=== PATIENT | female | born 1940 | race Hispanic/Latino ===

== ENCOUNTER 2017-11-08 23:10 | Emergency (ER) | payer OTHER ==
[~2017-11-08 23:10] MED LIST: ACET1TAB12 PO; AMLO2.5T PO; ASPI-1012 PO; ATOR40TA71 PO; GABA-529 PO; METF500T6 PO; METO-409 PO; OMEP40CA37 PO
[2017-11-08] MEDS ORDERED: HYDRALAZINE HCL 20 MG/ML VIAL ONE (23:29)
[2017-11-08] MEDS ORDERED: HYDROXYZINE HCL 25 MG TABLET ONE (23:32)
[2017-11-09] MEDS ORDERED: ASPIRIN 325 MG TABLET ONE (00:02)
[2017-11-09 00:12] LABS: BASOPHILS % (AUTO) 0.8 % (0.0-5.0); EOSINOPHILS % (AUTO) 5.5 % (0.0-8.0); HEMATOCRIT 34.6 % (36-48); LYMPHOCYTES % (AUTO) 31.7 % (21.0-51.0); MEAN CORPUSCULAR HEMOGLOBIN 27.9 pg (27.0-33.0); MEAN CORPUSCULAR HGB CONC 33.7 g/dL (32.0-36.0); MEAN CORPUSCULAR VOLUME 82.9 fL (79-99); MONOCYTES % (AUTO) 7.5 % (3.0-13.0); NEUTROPHILS % (AUTO) 54.5 % (40.0-77.0); NUCLEATED RED BLOOD CELLS 0.1 % (0.0-0.19); PLATELET COUNT (AUTO) 187 K/uL (130-400); RED BLOOD CELL COUNT(AUTO) 4.17 MIL/uL (4.00-5.50); RED CELL DISTRIBUTION WIDTH 17.6 % (11.0-15.5); WHITE BLOOD COUNT (AUTO) 8.6 K/uL (4.8-10.8)
[2017-11-09 00:16] LABS: POTASSIUM 3.5 mmol/L (3.5-5.1)
[2017-11-09 00:18] LABS: INR 1.03 (0.85-1.15); PARTIAL THROMBOPLASTIN TIME 25.4 SEC (26.3-35.5); PROTHROMBIN TIME 10.8 SEC (9.6-11.6)
[2017-11-09 00:26] LABS: B-TYPE NATRIURETIC PEPTIDE 567 pg/mL (0-100)
[2017-11-09 00:31] LABS: ALBUMIN 3.3 g/dL (3.5-5.0); BILIRUBIN,TOTAL 1.1 mg/dL (0.2-1.0); CREATINE KINASE MB 1.2 ng/mL (0.5-3.6)
== END 2017-11-09 00:58 | disposition home or self-care (01) ==
LOC: EDH 23:10
DX: I10 Essential (primary) hypertension (principal); R51 Headache; E11.9 Type 2 diabetes mellitus without complications; E78.5 Hyperlipidemia, unspecified; R79.1 Abnormal coagulation profile; Z88.8 Allergy status to other drugs, medicaments and biological substances; Z90.49 Acquired absence of other specified parts of digestive tract
CPT/HCPCS: 36415; 71045; 80053; 82550; 82553; 83874; 83880; 84484; 85025; 85610; 85730; 93005; 96374; 99285; J0360

== ENCOUNTER → 2018-07-31 | Outpatient (CLI) | payer OTHER ==
[~2018-07-31] MED LIST changes: -AMLO2.5T PO; +AMLO2.5T3 PO; +METF-444 PO; -METF500T6 PO
== END | disposition home or self-care (01) ==
LOC: OIH 10:19
PROVIDERS: ATTEND Family Medicine
DX: M47.896 Other spondylosis, lumbar region (principal); M41.86 Other forms of scoliosis, lumbar region; M48.061 Spinal stenosis, lumbar region without neurogenic claudication; M43.8X8 Other specified deforming dorsopathies, sacral and sacrococcygeal region; M85.88 Other specified disorders of bone density and structure, other site; I70.0 Atherosclerosis of aorta; M25.78 Osteophyte, vertebrae
CPT/HCPCS: 72100; 72220

== ENCOUNTER 2018-10-11 04:34 | Observation (INO) | payer OTHER ==
[~2018-10-11] VITALS: Ht 165.1 cm; Wt 58.8 kg
[~2018-10-11 04:34] MED LIST changes: -AMLO2.5T3 PO; +AMLO2.5T4 PO
[2018-10-11 05:01] LABS: BASOPHILS % (AUTO) 0.7 % (0.0-5.0); HEMATOCRIT 40.7 % (36-48); LYMPHOCYTES % (AUTO) 41.9 % (21.0-51.0); MEAN CORPUSCULAR HEMOGLOBIN 27.3 pg (27.0-33.0); MEAN CORPUSCULAR HGB CONC 33.1 g/dL (32.0-36.0); MEAN CORPUSCULAR VOLUME 82.5 fL (79-99); MONOCYTES % (AUTO) 6.2 % (3.0-13.0); NEUTROPHILS % (AUTO) 47.2 % (40.0-77.0); PLATELET COUNT (AUTO) 172 K/uL (130-400); RED BLOOD CELL COUNT(AUTO) 4.93 MIL/uL (4.00-5.50); RED CELL DISTRIBUTION WIDTH 19.7 % (11.0-15.5)
[2018-10-11 05:06] LABS: APPEARANCE,URINE Clear (CLEAR); BILIRUBIN,URINE Negative (NEGATIVE); COLOR,URINE Yellow (YELLOW); GLUCOSE, URINE (UA) Negative (NEGATIVE); KETONES,URINE Negative (NEGATIVE); LEUKOCYTE ESTERASE ,URINE Small (NEGATIVE); NITRATE,URINE Negative (NEGATIVE); OCCULT BLOOD,URINE Negative (NEGATIVE); PH,URINE 5.5 (5.0-8.0); PROTEIN,URINE Negative (NEGATIVE)
[2018-10-11 05:10] LABS: CREATININE 1.1 mg/dL (0.5-1.5); POTASSIUM 3.7 mmol/L (3.5-5.1)
[2018-10-11 05:13] LABS: BACTERIA,URINE Rare /HPF (None Seen); RBC,URINE None Seen /HPF (0-1); SQUAMOUS EPITHELIAL CELL,UR Moderate /HPF (0-2); WBC,URINE None Seen /HPF (0-1)
[2018-10-11 05:17] LABS: PARTIAL THROMBOPLASTIN TIME 23.6 SEC (26.3-35.5); PROTHROMBIN TIME 10.5 SEC (9.6-11.6)
[2018-10-11 05:28] LABS: ALBUMIN 3.8 g/dL (3.5-5.0); BILIRUBIN,TOTAL 1.1 mg/dL (0.2-1.0); TOTAL PROTEIN, SERUM 7.3 g/dL (6.0-8.3)
[2018-10-11] MEDS ORDERED: SODIUM CHLORIDE 0.9% 500ML 500 ML IV ONE (05:53)
[2018-10-11] MEDS ORDERED: SODIUM CHLORIDE 0.9% 10 ML VIAL IVP PRN (07:00)
[2018-10-11] MEDS ORDERED: PANTOPRAZOLE SODIUM 40 MG TABLET.DR PO SCH (07:30)
[2018-10-11] MEDS: ASPIRIN 325MG EC TAB 325 MG TABLET.DR PO SCH (09:00)
[2018-10-11] MEDS ORDERED: DEXTROSE 50%-WATER 50 ML DISP.SYRIN IV PRN (17:00)
[2018-10-11] MEDS ORDERED: GLUCAGON 1MG KIT 1 MG ML IM PRN (17:00)
[2018-10-11 17:15] VITALS: BP 141/62
[2018-10-11] MEDS ORDERED: PHARMACY COMMUNICATION MISC SCH (19:00)
[2018-10-11] MEDS ORDERED: LOSA100T58 PO (19:19)
[2018-10-11 19:35] VITALS: BP_SYST 102; BP_SYST 136; BP_DIAS 57; BP_DIAS 60
[2018-10-11] MEDS: INSULIN HUMULIN R 100 UNIT/ML 3ML SQ SCH (20:41)
[2018-10-11 23:32] VITALS: BP 142/71
[2018-10-12 03:57] VITALS: BP 117/60
[2018-10-12] MEDS: INSULIN HUMULIN R 100 UNIT/ML 3ML SQ SCH ×2 (06:19→11:30)
[2018-10-12 07:40] VITALS: BP 129/58
[2018-10-12] MEDS: ASPIRIN 325MG EC TAB 325 MG TABLET.DR PO SCH ×2 (09:09→09:11)
[2018-10-12 11:27] VITALS: BP 119/59
--- NOTE | 2018-10-12 18:05 | NUR ---
DC PLAN VISITED WITH PATIENT. PATIENT LIVES WITH SPOUSE AND SON. INDEPENDENT ABLE TO PERFORM ADL'S. PATIENT DC HOME. SAW PATIENT AND ADJUSTED MEDICATIONS. Addendum: 10/12/18 at 1807 by JOSE CAMPBELL RN CM Amended: Links added.
== END 2018-10-12 13:50 | disposition home or self-care (01) ==
LOC: EDH 04:34 → EDHIP 06:00 → 2DH 16:36
PROVIDERS: ADMIT Family Medicine; ATTEND Family Medicine
DX: R55 Syncope and collapse (principal); W18.39XA Other fall on same level, initial encounter; Y93.89 Activity, other specified; Y92.89 Other specified places as the place of occurrence of the external cause; Y99.8 Other external cause status; E11.9 Type 2 diabetes mellitus without complications; E78.5 Hyperlipidemia, unspecified; I10 Essential (primary) hypertension; Z90.49 Acquired absence of other specified parts of digestive tract
CPT/HCPCS: 36415; 71045; 80053; 81001; 82550 ×2; 82948 ×3; 83874; 84484 ×2; 85025; 85610; 85730; 93005; 93306; 93880; 97116; 97161; 99284; G0378 ×32; G8978; G8979; G8980; G8981; G8982; G8983; J7040

== ENCOUNTER → 2019-01-16 | Outpatient (CLI) | payer OTHER ==
[~2019-01-16] MED LIST changes: -ACET1TAB12 PO; -AMLO2.5T4 PO
== END | disposition home or self-care (01) ==
LOC: OIH 10:00
PROVIDERS: ATTEND Family Medicine
DX: M47.27 Other spondylosis with radiculopathy, lumbosacral region (principal); M41.87 Other forms of scoliosis, lumbosacral region
CPT/HCPCS: 72100

== ENCOUNTER 2019-07-18 05:40 | Day surgery (SDC) | payer OTHER, MEDICARE ==
[2019-07-16 08:44] LABS: BASOPHILS % (AUTO) 0.3 % (0.0-5.0); EOSINOPHILS % (AUTO) 1.5 % (0.0-8.0); HEMATOCRIT 34.8 % (36-48); LYMPHOCYTES % (AUTO) 26.6 % (21.0-51.0); MEAN CORPUSCULAR HEMOGLOBIN 28.5 pg (27.0-33.0); MEAN CORPUSCULAR HGB CONC 33.2 g/dL (32.0-36.0); MEAN CORPUSCULAR VOLUME 85.8 fL (79-99); MONOCYTES % (AUTO) 9.2 % (3.0-13.0); NEUTROPHILS % (AUTO) 62.4 % (40.0-77.0); PLATELET COUNT (AUTO) 175 K/uL (130-400); RED BLOOD CELL COUNT(AUTO) 4.06 MIL/uL (4.00-5.50); RED CELL DISTRIBUTION WIDTH 17.3 % (11.0-15.5); WHITE BLOOD COUNT (AUTO) 7.6 K/uL (4.8-10.8)
[2019-07-16 08:49] VITALS: BP 185/63
[2019-07-16 08:55] LABS: POTASSIUM 3.6 mmol/L (3.5-5.1)
[2019-07-16 09:13] LABS: INR 1.07 (0.85-1.15); PARTIAL THROMBOPLASTIN TIME 27.6 SEC (26.3-35.5); PROTHROMBIN TIME 11.2 SEC (9.6-11.6)
[~2019-07-18] VITALS: Ht 160 cm; Wt 55.8 kg
[2019-07-18] VITALS (8 sets, daily range): BP systolic 135–161; BP diastolic 60–73
[~2019-07-18 05:40] MED LIST changes: +ALEN70TA10 PO; +APIX5TAB PO; -ASPI-1012 PO; +CALC-1103 PO; +DEXA1TAB PO; -GABA-529 PO; +GABA-531 PO; +LOSA50TA64 PO; -METO-409 PO; +METO100T14 PO; +OMEP40CA13 PO; -OMEP40CA37 PO; +folic; +omega
[2019-07-18] MEDS ORDERED: SODIUM CHLORIDE 0.9% 1000ML 1,000 ML IV ONE (06:13)
--- NOTE | 2019-07-18 06:14 | NUR ---
PATIENT ARRIVED PATIENT ARRIVED TO DAY PATIENT ACCOMPANIED BY SPOUSE AND DAUGHTER (LYUDMILA). PATIENT AAOX3, RESPIRATIONS UNLABORED, VITAL SIGNS STABLE, DENIES ANY PAIN AT THIS TIME. PROCEDURE VERIFIED AND CONFIRMED WITH PATIENT. ALL QUESTIONS/CONCERNS ADDRESSED. PATIENT AND FAMILY EXPLAINED HOSPITAL ROUTINE AND BOTH VERBALIZED UNDERSTANDING.
[2019-07-18] MEDS ORDERED: AEC81 PO (07:25)
--- NOTE | 2019-07-18 07:30 | NUR ---
PATIENT TRANSFERRED PATIENT TAKEN TO ENGINEERING GROUP LEADER VIA BED BY NATHANAEL HARDWICK. PATIENT'S FAMILY INSTRUCTED TO WAIT IN THE ROOM SO THAT DR MONTOYA MAY SPEAK WITH THEM AFTER PROCEDURE IS COMPLETE, FAMILY VERBALIZED UNDERSTANDING.
[2019-07-18] MEDS ORDERED: LIDOCAINE HCL 2% 20ML ONE (07:33)
[2019-07-18] MEDS ORDERED: TYLENOL ARTHRITIS PO (07:33)
[2019-07-18] MEDS ORDERED: HEPARIN SODIUM 1000UNIT/ML 10ML VIAL ONE (07:53)
[2019-07-18] MEDS ORDERED: MIDAZOLAM HCL 1 MG/ML 2ML VIAL ONE (08:17)
[2019-07-18] MEDS ORDERED: MEPERIDINE-PF 25 MG/ML SYG ONE (08:17)
[2019-07-18] MEDS ORDERED: IOHEXOL-350 50ML VIAL IV ONE (08:40)
[2019-07-18] MEDS ORDERED: ACETAMINOPHEN 325 MG TAB PO PRN (10:15)
--- NOTE | 2019-07-18 10:15 | NUR ---
POST-PROCEDURE RECEIVED FROM SR ACCOUNT EXECUTIVE VIA BED BY RONEN BUSTILLO RN. S/P ATRIAL FLUTTER ABLATION. AWAKE IN NO ACUTE DISTRESS. DENIES PAIN. CONNECTED TO CONTINUOUS CARDIOPULMONARY MONITORING. SIDE RAILS UP X2, BED IN LOWEST POSITION, AND CALL LIGHT W/IN REACH.
--- NOTE | 2019-07-18 10:45 | NUR ---
ACTIVITY HOB ELEVATED TO 25 DEGREES. CATH SITE W/O SIGNS OF BLEEDING; SITE SOFT, NON-TENDER, DRESSING CLEAN, DRY, AND INTACT.
--- NOTE | 2019-07-18 12:15 | NUR ---
DIET ATE 75% OF LUNCH
--- NOTE | 2019-07-18 14:15 | NUR ---
ACTIVITY UP TO CHAIR WITH STANDBY ASSIST OF 1. GAIT STEADY. TOLERATED W/O C/O DIZZINESS OR PAIN.
--- NOTE | 2019-07-18 14:33 | NUR ---
DISCHARGE DAY PT DISCHARGE INSTRUCTION SHEET, MED REC, AND PT EDUCATION REVIEWED WITH PT AND DAUGHTER. BOTH VERBALIZED UNDERSTANDING. OPPORTUNITY GIVEN TO ASK QUESTIONS. QUESTION ADDRESSED.
== END 2019-07-18 14:38 | disposition home or self-care (01) ==
LOC: DAH 05:40
PROVIDERS: ATTEND Internal Medicine Cardiovascular Disease
DX: I48.3 Typical atrial flutter (principal); E78.5 Hyperlipidemia, unspecified; E11.40 Type 2 diabetes mellitus with diabetic neuropathy, unspecified; I12.9 Hypertensive chronic kidney disease with stage 1 through stage 4 chronic kidney disease, or unspecified chronic kidney disease; E11.22 Type 2 diabetes mellitus with diabetic chronic kidney disease; N18.3 Chronic kidney disease, stage 3 (moderate); Z88.8 Allergy status to other drugs, medicaments and biological substances; Z79.899 Other long term (current) drug therapy; Z79.01 Long term (current) use of anticoagulants; Z79.82 Long term (current) use of aspirin; Z90.49 Acquired absence of other specified parts of digestive tract; Z98.890 Other specified postprocedural states; Z83.3 Family history of diabetes mellitus; Z82.49 Family history of ischemic heart disease and other diseases of the circulatory system; Z79.84 Long term (current) use of oral hypoglycemic drugs
CPT/HCPCS: 36415; 80048; 82948; 85025; 85610; 85730; 93613; 93621; 93653; A4215; A4216; A4221; A4222; A4223 ×3; A4606; A4649 ×2; C1730; C1732; C1894 ×2; J1644 ×2; J2175; J2250; J3490; J7030; 99156; 99157; Q9967

== ENCOUNTER 2021-03-25 22:49 | Emergency (ER) | payer OTHER, MEDICARE ==
[~2021-03-25] VITALS: Ht 160 cm; Wt 45.4 kg
[~2021-03-25 22:49] MED LIST changes: +AEC81 PO; -ALEN70TA10 PO; +ALEN70TA80 PO; -OMEP40CA13 PO; +OMEP40CA21 PO; +TYLENOL ARTHRITIS PO
[2021-03-25] MEDS ORDERED: SOLU-MEDROL 125MG VIAL IVP STA (23:02)
[2021-03-25] MEDS ORDERED: DiphenhydrAMINE HCL 50 MG/ML VIAL IV STA (23:02)
[2021-03-25] MEDS ORDERED: FAMOTIDINE 20MG VIAL IV STA (23:02)
[2021-03-25] MEDS ORDERED: DiphenhydrAMINE HCL 50 MG/ML VIAL ONE (23:07)
[2021-03-25 23:51] VITALS: BP 129/65
[2021-03-25] MEDS ORDERED: FAMO-136 PO (23:57)
[2021-03-25] MEDS ORDERED: DIPH25 PO (23:57)
[2021-03-25] MEDS ORDERED: PRED10TA3 PO (23:57)
== END 2021-03-26 00:06 | disposition home or self-care (01) ==
LOC: EDH 23:04
DX: T78.1XXA Other adverse food reactions, not elsewhere classified, initial encounter (principal); R21 Rash and other nonspecific skin eruption; I10 Essential (primary) hypertension; E11.9 Type 2 diabetes mellitus without complications; E78.5 Hyperlipidemia, unspecified; Z88.8 Allergy status to other drugs, medicaments and biological substances; Z79.82 Long term (current) use of aspirin; Z79.01 Long term (current) use of anticoagulants; Z79.84 Long term (current) use of oral hypoglycemic drugs; Z79.899 Other long term (current) drug therapy; X58.XXXA Exposure to other specified factors, initial encounter
CPT/HCPCS: 96374; 96375; 99284; J1200; J2930; J3490

== ENCOUNTER → 2023-11-13 | Outpatient (CLI) | payer OTHER ==
[~2023-11-13] MED LIST changes: +AMOX-426 PO; -APIX5TAB PO; +ASPI-1005 PO; -CALC-1103 PO; +CALC-1252 PO; +CHOL200074 PO; -DEXA1TAB PO; +FOLI1 PO; +FURO20TA4 PO; -GABA-531 PO; +ISOS30TA92 PO; +LOSA100T59 PO; -LOSA50TA64 PO; +OSEL75 PO; +REGADENOSON 0.4 MG/5 ML PF SYG IVP ONE; -TYLENOL ARTHRITIS PO; -folic; -omega
== END | disposition home or self-care (01) ==
LOC: SHCH 08:12
PROVIDERS: ATTEND Internal Medicine Cardiovascular Disease
DX: I25.10 Atherosclerotic heart disease of native coronary artery without angina pectoris (principal)
CPT/HCPCS: 78452; 96374; 93017; J2785; A9500 ×2

== ENCOUNTER → 2024-01-15 | Outpatient (CLI) | payer OTHER ==
[~2024-01-15] MED LIST changes: -REGADENOSON 0.4 MG/5 ML PF SYG IVP ONE
== END | disposition home or self-care (01) ==
LOC: OIH 15:47
PROVIDERS: ATTEND Family Medicine
DX: J18.0 Bronchopneumonia, unspecified organism (principal)
CPT/HCPCS: 71046

== ENCOUNTER 2024-01-25 16:29 | Emergency (ER) | payer OTHER ==
[~2024-01-25] VITALS: Ht 165.1 cm; Wt 46.7 kg
[2024-01-25 17:39] LABS: RAPID GROUP A STREP negative (NEGATIVE)
[2024-01-25 17:44] LABS: SARS-CoV-2, RNA, NAAT NEGATIVE SARS CoV-2 (NEGATIVE)
[2024-01-25 17:49] LABS: INFLUENZA TYPE A Negative For Type A (NEGATIVE); INFLUENZA TYPE B Negative For Type B (NEGATIVE)
[2024-01-25 18:53] LABS: BASOPHILS # (AUTO) 0.01 K/uL (0.00-0.20); BASOPHILS % (AUTO) 0.1 % (0.0-5.0); EOSINOPHILS # (AUTO) 0.02 K/uL (0.00-0.70); EOSINOPHILS % (AUTO) 0.2 % (0.0-8.0); HEMATOCRIT 32.6 % (36-48); IMMATURE GRANULOCYTE ABSOLUTE 0.04 K/uL (0-1); LYMPHOCYTES # (AUTO) 1.2 K/uL (1.0-4.8); LYMPHOCYTES % (AUTO) 13.9 % (21.0-51.0); MEAN CORPUSCULAR HEMOGLOBIN 23.7 pg (27.0-33.0); MEAN CORPUSCULAR HGB CONC 31.6 g/dL (32.0-36.0); MEAN CORPUSCULAR VOLUME 75.1 fL (79-99); MONOCYTES # (AUTO) 0.6 K/uL (0.1-1.0); MONOCYTES % (AUTO) 6.7 % (3.0-13.0); NEUTROPHILS # (AUTO) 6.5 K/uL (1.8-7.7); NEUTROPHILS % (AUTO) 78.6 % (40.0-77.0); PLATELET COUNT (AUTO) 215 K/uL (130-400); RED BLOOD CELL COUNT(AUTO) 4.34 MIL/uL (4.00-5.50); RED CELL DISTRIBUTION WIDTH 20.2 % (11.0-15.5); WHITE BLOOD COUNT (AUTO) 8.3 K/uL (4.8-10.8)
[2024-01-25 19:04] LABS: CREATININE 1.2 mg/dL (0.5-1.0); POTASSIUM 4.4 mmol/L (3.5-5.1)
[2024-01-25 19:09] LABS: ALBUMIN 2.8 g/dL (3.5-5.0); BILIRUBIN,TOTAL 0.7 mg/dL (0.2-1.0); TOTAL PROTEIN, SERUM 5.9 g/dL (6.0-8.3)
[2024-01-25 20:19] LABS: ABG BASE EXCESS -1.8 mmol/L (-2.0-3.0); ABG HCO3 21.6 mmol/L (21.0-28.0); ABG OXYGEN SATURATION 96.6 % (95.0-99.0); ABG PCO2 33 mmHg (32-45); ABG PH 7.429 (7.35-7.450); PO2, ARTERIAL BG 83.4 mmHg (83.0-108.0); VENT MODE, BG ROOMAIR (ROOM AIR)
[2024-01-25] MEDS: IPRATROPIUM/ALBUTEROL SULFATE 3 ML SOLUTION IH ONE (20:29)
[2024-01-25 20:30] VITALS: PULSE 65; RESP 18
[2024-01-25 21:41] LABS: APPEARANCE,URINE CLEAR (CLEAR); BILIRUBIN,URINE NEGATIVE (NEGATIVE); COLOR,URINE LIGHT-YELLOW (YELLOW); GLUCOSE, URINE (UA) NEGATIVE (NEGATIVE); KETONES,URINE NEGATIVE (NEGATIVE); LEUKOCYTE ESTERASE ,URINE NEGATIVE Leu/uL (NEGATIVE); NITRATE,URINE NEGATIVE (NEGATIVE); OCCULT BLOOD,URINE NEGATIVE (NEGATIVE); PH,URINE 5.5 (5.0-8.0); PROTEIN,URINE 20 mg/dL (NEGATIVE); UROBILINOGEN,URINE 0.2 mg/dL (0.2-1.0)
[2024-01-25 21:44] LABS: ADD UA MICROSCOPIC YES
[2024-01-25 21:46] LABS: BACTERIA,URINE RARE /HPF (None Seen); MUCUS,URINE FEW LPF (None Seen); SQUAMOUS EPITHELIAL CELL,UR RARE /HPF (0-2)
[2024-01-25] MEDS ORDERED: IOHEXOL 350 MG/ML 100ML INFUS..BTL IV ONE (21:49)
[2024-01-25 22:50] VITALS: BP 141/49; PULSE 80; RESP 17; O2SAT 100
[2024-01-25] MEDS ORDERED: ALBU90AE2 IH (23:03)
== END 2024-01-25 23:37 | disposition home or self-care (01) ==
LOC: EDH 16:29
DX: J44.9 Chronic obstructive pulmonary disease, unspecified (principal); M54.50 Low back pain, unspecified; K59.00 Constipation, unspecified; I10 Essential (primary) hypertension; E11.9 Type 2 diabetes mellitus without complications; E78.00 Pure hypercholesterolemia, unspecified; Z20.822 Contact with and (suspected) exposure to COVID-19; Z79.82 Long term (current) use of aspirin; Z79.84 Long term (current) use of oral hypoglycemic drugs; Z90.49 Acquired absence of other specified parts of digestive tract; Z98.890 Other specified postprocedural states
CPT/HCPCS: 99285; 71270; 71045; 87635; 84484; 80053; 82803; 83880; 83690; 85025; 87880; 87804 ×2; 81001; 36415; 74177; 93005; 36600; 94640; Q9967